=== PATIENT | female | born 1985 | race Two or more races ===

== ENCOUNTER → 2016-07-31 | Outpatient (REF) | payer OTHER ==
[~2016-07-31] MED LIST: ACET50TA PO; ANUS2.5C2 TOP; COLA100C PO; CYCL10TA PO; DIBU1OI TOP; DOCU10CA PO; FIORICET PO; IBUP-1114 PO; IBUP80TA PO; NUPE1OIN2 TOP; PRENATAL VITAMIN PO; PRENTAB9 PO
== END ==
LOC: M SFHCLERA 18:48
PROVIDERS: ATTEND Nurse Practitioner Family
DX: J06.9 Acute upper respiratory infection, unspecified (principal)

== ENCOUNTER → 2017-08-26 | Outpatient (REF) | payer OTHER | LOC: M LAB REF 17:25 | DX: E04.1 Nontoxic single thyroid nodule (principal) ==

== ENCOUNTER → 2018-02-15 | Outpatient (CLI) | payer OTHER | LOC: M RAD 11:38 | DX: N64.4 Mastodynia (principal) | CPT/HCPCS: 77066 ==

== ENCOUNTER → 2018-04-21 | Outpatient (CLI) | payer OTHER, MEDICAID ==
[~2018-04-21] MED LIST changes: -ACET50TA PO; -ANUS2.5C2 TOP; -COLA100C PO; -CYCL10TA PO; -DIBU1OI TOP; -DOCU10CA PO; -FIORICET PO; -IBUP-1114 PO; -IBUP80TA PO; +LIDOCAINE 1% MDV 20ML VIAL As Ordered; -NUPE1OIN2 TOP; -PRENATAL VITAMIN PO; -PRENTAB9 PO
[2018-04-21 14:26] LABS: CSF RBC 5 10^3/uL (<2)
[2018-04-21 14:28] LABS: APPEARANCE, CSF HAZY (CLEAR); COLOR, CSF PINK (COLORLESS); CSF DIFF IF INDICATED? YES (NO); CSF TUBE# CELL CNT TUBE 1; CSF WBC 10 /uL (0-10)
[2018-04-21 14:46] LABS: CSF TUBE# GLU TUBE 1; CSF TUBE# TP TUBE 1; GLUCOSE CSF 50 MG/DL (40-75); TOTAL PROTEIN,CSF 79 MG/DL (15-45)
[2018-04-26 00:30] LABS: IMMUNOGLOBULIN G CSF 4.3 mg/dL (0.0-8.6)
== END ==
LOC: M RADPRO 11:09
DX: G93.2 Benign intracranial hypertension (principal); M47.9 Spondylosis, unspecified
CPT/HCPCS: 62272

== ENCOUNTER → 2019-07-26 | Outpatient (REF) | payer OTHER, MEDICAID ==
[~2019-07-26] MED LIST changes: +ANUS2.5C2 TOP; +COLA100C5 PO; +CYCL10TA PO; +DIBU10OI TOP; +DOCU10CA PO; +FIORICET PO; +IBUP-1114 PO; +IBUP80TA PO; -LIDOCAINE 1% MDV 20ML VIAL As Ordered; +MAPA500T2 PO; +NUPE1OIN2 TOP; +PRENATAL VITAMIN PO; +PRENTAB9 PO
[2019-07-26 17:47] LABS: C REACTIVE PROTEIN QUANTITATIV < 0.30 MG/DL (0.00-0.30); RHEUMATOID FACTOR QUANT < 10.0 IU/ML (<15.0)
== END ==
LOC: M SFHCRHEU 13:35
PROVIDERS: ATTEND Internal Medicine
DX: M35.7 Hypermobility syndrome (principal)
CPT/HCPCS: 36415; 85652; 86140; 86200; 86431; G0463

== ENCOUNTER 2020-01-16 06:45 | Day surgery (SDC) | payer OTHER, MEDICAID ==
[~2020-01-16] VITALS: Ht 165.1 cm; Wt 71.2 kg
[~2020-01-16 06:45] MED LIST changes: +B-1100TA2 PO; +B-12100T2 PO; +B-2100TA PO; +CLAR10CA3 PO; +CYCL-707 PO; -CYCL10TA PO; +D31000TA2 PO; +IRON65TA2 PO; +LOPE1TAB PO; +MAGN400T2 PO; +MAXA10TA14 PO; +MELO15TA28 PO; +METH1TAB40 PO; +NEUR300C PO; +NORT10CA2 PO; +SIME180C PO; +TRAM50TA2 PO; +VITA500C19 PO
[2020-01-16] MEDS ORDERED: ROPIvacaine 0.5% 30ML INJECTION (J2795 PER 1MG) ONE (06:46)
[2020-01-16] MEDS ORDERED: LIDOCAINE 1% MDV 20ML VIAL ONE (06:46)
[2020-01-16] MEDS ORDERED: ceFAZolin 2 GM/D5W 50 ML IV BAG (J0690 PER 500MG) As Ordered ONE (08:08)
[2020-01-16] MEDS ORDERED: METOCLOPRAMIDE INJ 10MG/2ML VIAL (J2765 PER 1) As Ordered ONE ×2 (08:17→13:47)
[2020-01-16] MEDS ORDERED: KETOROLAC 60MG 2ML VIAL As Ordered ONE (08:17)
[2020-01-16] MEDS ORDERED: ROCURONIUM BROMIDE 50 MG/5 ML VIAL As Ordered ONE (08:17)
[2020-01-16] MEDS ORDERED: ONDANSETRON 4MG/2ML VIAL As Ordered ONE ×2 (08:17→12:22)
[2020-01-16] MEDS ORDERED: propofoL 200 MG/20 ML VIAL As Ordered ONE (08:17)
[2020-01-16] MEDS ORDERED: LIDOCAINE 2% 100MG/5ML SDV (FOR ANES.) As Ordered ONE (08:17)
[2020-01-16] MEDS ORDERED: fentaNYL 100 MCG/2 ML INJECTION (J3010) As Ordered ONE ×2 (08:18→08:30)
[2020-01-16] MEDS ORDERED: MIDAZOLAM INJ 2MG/2ML VIAL (J2250 PER 1MG) As Ordered ONE ×2 (08:18→08:30)
[2020-01-16] MEDS ORDERED: BUPIVACAINE HCL 0.5% 30 ML VIAL As Ordered ONE (08:51)
[2020-01-16] MEDS ORDERED: EPINEPHrine 1MG/ML INJ 30ML MD-VIAL As Ordered ONE (08:51)
[2020-01-16] MEDS ORDERED: MIDAZOLAM INJ 2MG/2ML VIAL (J2250 PER 1MG) IV ONE ×2 (09:30→14:15)
[2020-01-16] MEDS ORDERED: fentaNYL 100 MCG/2 ML INJECTION (J3010) IV ONE ×2 (09:30→14:15)
[2020-01-16] MEDS ORDERED: LIDOCAINE 1% SDV 30ML VIAL As Ordered ONE (09:59)
[2020-01-16] MEDS ORDERED: dexameTHASONE 4 MG/ML 1ML VIAL (J1100 PER 1MG) As Ordered ONE (10:43)
[2020-01-16] MEDS ORDERED: oxyCODONE 5MG TAB As Ordered ONE (12:22)
[2020-01-16] MEDS ORDERED: HYDROMORPHONE HCL 0.5 MG/ 0.5 ML SYRINGE (J1170 PER 1) As Ordered ONE ×2 (12:23→12:41)
[2020-01-16] MEDS ORDERED: LR 1,000 ML IV SCH ×2 (12:30→12:45)
[2020-01-16] MEDS: ONDANSETRON 4MG/2ML VIAL IV PRN ×2 (12:30→12:49)
[2020-01-16] MEDS: oxyCODONE 5MG TAB PO PRN ×2 (12:35→13:11)
[2020-01-16] MEDS ORDERED: fentaNYL 100 MCG/2 ML INJECTION (J3010) IV PRN (12:45)
[2020-01-16] MEDS: HYDROMORPHONE HCL 0.5 MG/ 0.5 ML SYRINGE (J1170 PER 1) IV PRN ×3 (12:52→13:12)
[2020-01-16] MEDS ORDERED: METOCLOPRAMIDE INJ 10MG/2ML VIAL (J2765 PER 1) IV PRN (14:15)
[2020-01-16 15:30] VITALS: BP 108/62
--- NOTE | 2020-02-29 13:07 | RO ---
DATE OF OPERATION: 01/16/2020 PREOPERATIVE DIAGNOSES: * Right shoulder instability. * Right shoulder biceps tendonitis. * Right shoulder acromioclavicular joint arthritis. POSTOPERATIVE DIAGNOSES: * Right shoulder instability. * Right shoulder biceps tendonitis. * Right shoulder acromioclavicular joint arthritis. * Right shoulder partial rotator cuff tear. PROCEDURES: * Right shoulder arthroscopic anterior and posterior labral repair. * Right shoulder arthroscopic rotator cuff tear debridement (bursal side). * Right shoulder open subpectoral biceps tenodesis. * Right shoulder arthroscopic distal clavicle excision. SURGEON: Uche Kauffman M.D. CREDIT RISK REVIEW OFFICER: RACHEAL Dominguez. ANESTHESIA: General with preoperative nerve block. IV FLUIDS: Lactated ringers. ESTIMATED BLOOD LOSS: 10 mL. IMPLANTS: Arthrex Proximal Biceps Button x1 and Arthrex 3-mm Suture Sunil x1 and Arthrex 2.9-mm PushLock anchor x3 with labral tape. CLOSURE: Nylon and Monocryl. DESCRIPTION OF PROCEDURE: Patient was identified in the preoperative holding area. The right shoulder was marked by me. She had a clearance from Dr. Barrett. She had an interscalene nerve block from anesthesia. She was brought to the operating room and placed supine on a well-padded OR table with a nicole bag. General anesthesia was induced. Examination under anesthesia revealed 170 of forward flexion, 90 external rotation, grade 2+ low anterior load and shift, grade 2 posterior load and shift. She was then placed in the left-side down lateral decubitus position with an axillary roll. All marysol prominences were well-padded with bilateral Venodyne boots for DVT prophylaxis. The right arm was placed into the Arthrex StaR Sleeve lateral decubitus traction hallman with 10 pounds of traction. The right shoulder was then prepped and draped in a normal sterile fashion with ChloraPrep. She received appropriate IV antibiotics within one hour of incision. A time-out was again performed per hospital protocol. Misael Malcolm was present for the entire procedure and participated in all essential portions of the procedure. This included patient positioning and draping, holding the arthroscope, holding retractors, assisting with whip stitching during the biceps tenodesis, assisting with the wound closure for that, providing traction to the arm during suture passage and drilling and anchor placement. He also assisted with loading sutures for the anchors. He also performed the wound closure and applied the dressing and sling. A posterior viewing portal was localized with a spinal needle. An incision was made with an 11-blade. A 30 arthroscope was introduced into the joint and diagnostic arthroscopy was carried out. There was no tearing of the subscapularis, no tearing of the articular side of the rotator cuff. with a few areas of grade 1 chondromalacia in the glenoid, and the humeral head was in good condition. There was entirely deficit anterior and posterior-inferior labrum with absolutely no bumper and a positive drive-through sign. An anterior working portal was localized with a spinal needle just off of subscapularis. Purple Arthrex cannula placed. Superior labrum was stable. The long head of the biceps was brought into the joint and there was some hyperemia and evidence of a possible partial longitudinal split tear. Given the patient's preoperative symptoms and her strong desire to have a biceps tenodesis to avoid a second surgery, I used the biter to release the long head of the biceps off of the superior labrum. The tendon was noted to withdraw from the joint. The stump was debrided back to the superior labrum. I then proceeded with an open biceps tenodesis. The incision was made with a 15- blade just lateral to the axilla. Metzenbaum scissors were used to dissect down to the biceps fascia, which was carefully opened with scissors. The long head of the biceps was easily dissected out with the right angle clamp. The Arthrex proximal biceps tenodesis kit was opened. The FiberLoop was used to create a running locking whip stitch through the long head of the biceps. Excess tendon trimmed and discarded. Sutures were loaded through the button per routine. The spade-tipped drill bit was used to create a unicortical drill hole in the bicipital groove and bony debris removed with irrigation. The button was passed through the drill hole on the laboratory animal caretaker. Sutures were toggled which flipped the button. A curve free needle was used to pass one limb of suture back through the tendon, knot tied by hand to lock the construct in place. This made sure to restore the resting tension. The incision extensively irrigated with arthroscopy fluid and then the fascia was closed with 2-0 Vicryl, followed by a 2-0 Vicryl subcuticular closure and a running Monocryl. At the end of the case, Steri- Strips were placed. The arthroscope was placed back into the joint. When viewing from the anterior portal, the humeral head was noted to be subluxed in it inferiorly. Based on preoperative planning and intraoperative examination and inspected, this required both the anterior and posterior-inferior labral repair. So, an accessory superolateral portal was developed just anterior to the biceps. The hooked radiofrequency cautery was used to develop the plane between glenoid labrum and articular cartilage from the 3:30 to 5:30 position. The labral elevator was then used to subperiosteally elevate the labrum and capsule off of the anterior glenoid neck. Shaver was then used to remove soft tissue and then on the bur setting to create a bleeding surface. I then drilled and placed a 3-mm Suture Sunil anchor at the 5:00 o'clock position. TigerWire sutures were passed with the SutureLasso in a horizontal mattress fashion through the anterior band of the inferior glenohumeral ligament. My assistant housekeeping manager applied a posterior lever push to the proximal humerus and then I tied knots using alternating half-hitch technique. This nicely restored the anterior-inferior bumper. Drive-through sign was eliminated. Next, a SutureLasso was used to shuttle labral tape through the capsule and labrum. This was loaded through a PushLock anchor and a socket drilled at the 4:00 o'clock position. The anchor was docked and sutures gently tensioned and then inserted by hand and then malleted to the appropriate depth per routine. Suture was cut with the bias binding cutter. This nicely restored the anterior-inferior bumper. The scope was placed in the superolateral portal. Humeral head was just posterior to the midline. There was deficit posterior-inferior labral bumper, so an accessory posterolateral portal was localized with the Arthrex Percutaneous Labral Repair kit. A third and final cannula was placed. The hooked cautery was used to elevate capsule and labrum off of the posterior-inferior glenoid. Then, labral elevators were used through the anterior portal to subperiosteally elevate capsule and labrum. SutureLasso was used to shuttle labral tape through the posterior-inferior capsule and labrum. This was loaded through a PushLock anchor per routine. A socket was drilled at the 7:00 o'clock position. Then the same steps as before repeated. The anchor was docked, malleted with excellent fixation. The same steps were repeated for a fourth and final PushLock anchor that was drilled and placed at the 8:00 o'clock position. This nicely completed the anterior and posterior labral repair with an [id number] capsular shift. There was no significant glenohumeral arthritis. The shoulder was irrigated and drained. The arthroscope was now placed in the subacromial space, where there was dense bursitis, but only a subacromial spur. Through a lateral working portal, I performed an extensive bursectomy. Soft tissue was then cleared out at the AC joint. Through the anterior portal, a bur was used to remove approximately 6-mm of the distal clavicle. The scope was intermittently placed into the anterior portal to get a direct view and to ensure all posterior-superior bone had been removed. At the completion of the distal clavicle excision, the shoulder was irrigated and drained. Portals were closed with nylon suture. Bulky sterile dressing was applied. Steri-Strips were placed over the biceps tenodesis incision. The patient, at this time, is being placed into her sling, and then will be extubated and transferred to the PACU. She will have to start physical therapy in 7 to 10 days. ALPESH
== END 2020-01-16 16:08 | disposition home or self-care (01) ==
LOC: M SDC 06:45
PROVIDERS: ATTEND Orthopaedic Surgery
DX: S43.431A Superior glenoid labrum lesion of right shoulder, initial encounter (principal); F43.10 Post-traumatic stress disorder, unspecified; Z88.8 Allergy status to other drugs, medicaments and biological substances; F32.9 Major depressive disorder, single episode, unspecified; F41.9 Anxiety disorder, unspecified; D64.9 Anemia, unspecified; Z79.899 Other long term (current) drug therapy; X58.XXXA Exposure to other specified factors, initial encounter; Y92.89 Other specified places as the place of occurrence of the external cause; Y93.9 Activity, unspecified; Y99.9 Unspecified external cause status
CPT/HCPCS: 23430; 29806; 29824; 64415; 81025; C1713; J1100; J1170; J2250; J2405; J2765; J2795; J3010

== ENCOUNTER → 2020-04-03 | Outpatient (CLI) | payer OTHER, MEDICAID ==
--- NOTE | 2020-04-04 03:04 | REP ---
INDICATION: BENIGN INTRACRANIAL HYPERTENSION. COMPARISON: None. TECHNIQUE: AP and lateral views of the mid abdomen and pelvis FINDINGS: There is a catheter with radiodense hub originating in the region of the right paraspinous musculature/soft tissue extending into the pelvis. The catheter appears continuous and without fracture or kink. Lateral view suggests a more proximal portion of catheter possibly within the epidural space extending from the superior aspect of the examination exiting the region of the spinal canal at the L3-4 level and terminating at the above-mentioned hub in the posterior soft tissue. IMPRESSION: 1. Poor visualization of a presumed epidural catheter extending to a radiodense hub in the posterior right paraspinous subcutaneous tissue followed by well identified catheter extending from the radiodense held into the pelvis. <Electronically signed by Kyle Perez > 04/04/20 1428
== END ==
LOC: M RAD 15:36
PROVIDERS: ATTEND Neurological Surgery
DX: G93.2 Benign intracranial hypertension (principal); Z48.811 Encounter for surgical aftercare following surgery on the nervous system; Z98.2 Presence of cerebrospinal fluid drainage device

== ENCOUNTER 2020-05-02 13:04 | Day surgery (SDC) | payer OTHER, MEDICAID ==
[~2020-05-02] VITALS: Ht 165.1 cm; Wt 73.4 kg
[~2020-05-02 13:04] MED LIST changes: +BACL1TAB8 PO; +DILA2TAB6 PO; +LIDOCAINE 1% MDV 20ML VIAL As Ordered ONE; +MIDAZOLAM INJ 2MG/2ML VIAL (J2250 PER 1MG) As Ordered ONE; +MIDAZOLAM INJ 2MG/2ML VIAL (J2250 PER 1MG) IV PRN; +PERC5TAB12 PO; +ROPIvacaine 0.5% 30ML INJECTION (J2795 PER 1MG) As Ordered ONE; +dexameTHASONE 10MG/1ML VIAL PRES.FREE (J1100 PER 1MG) As Ordered ONE; +fentaNYL 100 MCG/2 ML INJECTION (J3010) As Ordered ONE; +fentaNYL 100 MCG/2 ML INJECTION (J3010) IV PRN
[2020-05-02 13:50] LABS: HEMATOCRIT 40.8 % (36.0-47.0); HEMOGLOBIN 13.5 g/dl (12.0-15.5); MEAN CORPUSCULAR HEMOGLOBIN 28.4 pg (27.0-33.0); MEAN CORPUSCULAR HGB CONC 33.1 g/dl (32.0-36.5); MEAN CORPUSCULAR VOLUME 85.7 fl (80.0-96.0); PLATELET COUNT, AUTOMATED 202 10^3/uL (150-450); RED BLOOD COUNT 4.76 10^6/uL (4.00-5.40); WHITE BLOOD COUNT 6.7 10^3/uL (4.0-10.0)
[2020-05-02] MEDS ORDERED: LIDOCAINE 2% 100MG/5ML SDV (FOR ANES.) As Ordered ONE (13:53)
[2020-05-02] MEDS ORDERED: fentaNYL 100 MCG/2 ML INJECTION (J3010) As Ordered ONE (13:53)
[2020-05-02] MEDS ORDERED: MIDAZOLAM INJ 2MG/2ML VIAL (J2250 PER 1MG) As Ordered ONE (13:53)
[2020-05-02] MEDS ORDERED: ROCURONIUM BROMIDE 50 MG/5 ML VIAL As Ordered ONE (13:53)
[2020-05-02] MEDS ORDERED: propofoL 200 MG/20 ML VIAL As Ordered ONE (13:53)
[2020-05-02] MEDS ORDERED: KETOROLAC 60MG 2ML VIAL As Ordered ONE (13:54)
[2020-05-02] MEDS ORDERED: dexameTHASONE 4 MG/ML 1ML VIAL (J1100 PER 1MG) As Ordered ONE (13:54)
[2020-05-02] MEDS ORDERED: ONDANSETRON 4MG/2ML VIAL As Ordered ONE ×2 (13:54→19:09)
[2020-05-02] MEDS ORDERED: ceFAZolin SOD 2 GM in IV 1 EA IV ONE (15:00)
[2020-05-02] MEDS ORDERED: LIDOCAINE 1% MDV 20ML VIAL XX ONE (15:00)
[2020-05-02] MEDS ORDERED: dexameTHASONE 10MG/1ML VIAL PRES.FREE (J1100 PER 1MG) XX ONE (15:00)
[2020-05-02] MEDS ORDERED: ROPIvacaine 0.5% 30ML INJECTION (J2795 PER 1MG) XX ONE (15:00)
[2020-05-02] MEDS ORDERED: EPINEPHrine 1MG/ML INJ 30ML MD-VIAL As Ordered ONE (15:02)
[2020-05-02] MEDS ORDERED: BUPIVACAINE HCL 0.25% 10ML VIAL As Ordered ONE (17:13)
[2020-05-02] MEDS ORDERED: BUPIVACAINE LIPOSOME/PF 1.3% 20ML VIAL (13.3MG/ML)(EXPAREL)(C9290 PER1MG) As Ordered ONE (17:13)
[2020-05-02] MEDS ORDERED: HYDROmorphone HCL 2 MG/ML 1ML VIAL (J1170) As Ordered ONE (17:17)
[2020-05-02] MEDS ORDERED: PHENYLephrine HCL 500 MCG/5 ML (100MCG/ML) SYRINGE (J2370) As Ordered ONE (17:19)
[2020-05-02] MEDS ORDERED: SUGAMMADEX SODIUM 500 MG/5 ML VIAL (BRIDION) As Ordered ONE (17:42)
[2020-05-02] MEDS ORDERED: ACETAMINOPHEN 1000MG 100ML IV BTL (OFIRMEV) (J0131 PER 10MG) As Ordered ONE (17:44)
[2020-05-02] MEDS ORDERED: ONDANSETRON 4MG/2ML VIAL IV PRN (19:30)
[2020-05-02] MEDS ORDERED: HYDROMORPHONE HCL 0.5 MG/ 0.5 ML SYRINGE (J1170 PER 1) IV PRN (19:30)
[2020-05-02] MEDS ORDERED: fentaNYL 100 MCG/2 ML INJECTION (J3010) IV PRN (19:30)
[2020-05-02] MEDS ORDERED: oxyCODONE 5MG TAB PO PRN (19:30)
[2020-05-02] MEDS ORDERED: LR 1,000 ML IV SCH ×2 (19:30)
[2020-05-02 20:55] VITALS: BP 135/91
--- NOTE | 2020-05-03 10:02 | RO ---
OPERATIVE NOTE DATE OF OPERATION: 05/02/2020 PREOPERATIVE DIAGNOSES: 1. Right shoulder arthrofibrosis. 2. Right shoulder possible labral re-tear. POSTOPERATIVE DIAGNOSES: 1. Right shoulder arthrofibrosis. 2. Right shoulder glenohumeral chondromalacia. 3. Right shoulder anterior labral tear. PROCEDURES: 1. Right shoulder manipulation under anesthesia. 2. Right shoulder arthroscopic synovectomy and chondroplasty. 3. Right shoulder arthroscopic hardware removal. SURGEON: Uche Kauffman M.D. COOKEE: None. ANESTHESIA: General. IV FLUIDS: Lactated ringers. ESTIMATED BLOOD LOSS: 10 mL. IMPLANTS: None. CLOSURE: Nylon. DESCRIPTION OF PROCEDURE: The patient was identified in the preoperative holding area where the right shoulder was marked. This is a female who had had a combined anterior and posterior labral repair in December and then, was probably placed in the prone position with the shoulders and elbows at 90/90 for an emergency surgery on a shunt and retore her labrum. She has had significant pain since then. She was cleared by her neurosurgeon for revision shoulder surgery. Risks and benefits of surgery discussed. Written informed consent obtained. She had an interscalene nerve block by anesthesia and then was brought to the operating room placed supine on a well-padded OR table with a nicole bag. General anesthesia induced. She received appropriate antibiotics within one hour of incision. Bilateral SCDs for DVT prophylaxis. Examination under anesthesia revealed 90 degrees of forward flexion, 10 degrees of external rotation with arm at her side, 10 degrees of external rotation with the shoulder at 90. No increased anterior or posterior translation on load and shift. I then performed a manipulation under anesthesia. I applied steady forward flexion, grasping the humerus as close to the shoulder as possible to decrease the lever arm and minimize the risk for fracture. Multiple pops were felt and heard. This was all slow and steady. From the forward flexed position, she was then dropped down into 90/90 position, the humerus as adducted against her side, and multiple pops were felt again. The patient's arm was then abducted and then those same steps were repeated. She now had 170 degrees of forward flexion, 70 degrees of external rotation with her arm at her side, and 80 degrees of external rotation with her shoulder at 90. She had a grade 1 plus anterior load and shift. She was then placed in the left side down lateral decubitus position with an axillary roll and all bony prominences were well padded. She was secured to the OR table with a nicole bag. The right arm was placed into the Arthrex STaR Sleeve Lateral Decubitus Traction hallman with 10 pounds of traction. Time-out was again performed. Again, the right shoulder had been prepped and draped in the normal sterile fashion with ChloraPrep. Time-out performed again. The right shoulder was insufflated with lactated ringers with the spinal needle. Standard posterior viewing portal made with the 11-blade, a 30-degree arthroscope was then introduced into the joint, and diagnostic arthroscopy carried out. There were a few thin flaps of frayed articular cartilage on both the humeral head and glenoid. No high grade defects though. The posterior inferior labral repair appeared intact. The entire anterior capsule was torn. Some loose suture from the SutureTak anchor was visible. No loose anchors seen. There was free edge tearing of the superior labrum. No obvious rotator cuff tearing. An anterior working portal was established through the rotator interval. A purple Arthrex cannula was placed. A shaver was then used to perform a synovectomy and superior labral debridement. INCOMPLETE /verified/ml
== END 2020-05-02 20:55 | disposition home or self-care (01) ==
LOC: M SDC 13:04
PROVIDERS: ATTEND Orthopaedic Surgery
DX: S43.431A Superior glenoid labrum lesion of right shoulder, initial encounter (principal); X58.XXXA Exposure to other specified factors, initial encounter; M94.211 Chondromalacia, right shoulder; M24.611 Ankylosis, right shoulder; Y92.89 Other specified places as the place of occurrence of the external cause; Y93.9 Activity, unspecified; Y99.9 Unspecified external cause status; K58.8 Other irritable bowel syndrome; G43.909 Migraine, unspecified, not intractable, without status migrainosus; D64.9 Anemia, unspecified; F41.9 Anxiety disorder, unspecified; F32.9 Major depressive disorder, single episode, unspecified; Z88.8 Allergy status to other drugs, medicaments and biological substances; Z79.899 Other long term (current) drug therapy
CPT/HCPCS: 29820; 29825; 36415; 64415; 81025; 85027; C9290; J0131; J0690; J1100; J1170; J1885; J2250; J2370; J2405; J3010

== ENCOUNTER 2022-02-18 13:30 | Emergency (ER) | payer OTHER ==
[~2022-02-18 13:30] MED LIST changes: -D31000TA2 PO; -DIBU10OI TOP; +DIBU28OI2 TOP; -LIDOCAINE 1% MDV 20ML VIAL As Ordered ONE; -MAXA10TA14 PO; +METH-1164 PO; -METH1TAB40 PO; -MIDAZOLAM INJ 2MG/2ML VIAL (J2250 PER 1MG) As Ordered ONE; -MIDAZOLAM INJ 2MG/2ML VIAL (J2250 PER 1MG) IV PRN; +RIZA10TA64 PO; -ROPIvacaine 0.5% 30ML INJECTION (J2795 PER 1MG) As Ordered ONE; -SIME180C PO; +SIME180C25 PO; +VITA100093 PO; -dexameTHASONE 10MG/1ML VIAL PRES.FREE (J1100 PER 1MG) As Ordered ONE; -fentaNYL 100 MCG/2 ML INJECTION (J3010) As Ordered ONE; -fentaNYL 100 MCG/2 ML INJECTION (J3010) IV PRN
[2022-02-18] MEDS ORDERED: dexameTHASONE 20MG/5ML VIAL (J1100 PER 1MG) IV ONE (18:05)
[2022-02-18] MEDS ORDERED: MAG SULF 1GM/100ML (MAG RUN) 1 GM in IV 1 EA IV ONE (18:05)
[2022-02-18] MEDS ORDERED: VALPROATE SOD INJ 1,000 MG in D5W 50 ML IV ONE (18:05)
[2022-02-18] MEDS ORDERED: HALOPERIDOL 5MG/ML VIAL (J1630 PER 1) IV ONE (18:05)
[2022-02-18 20:40] VITALS: BP 132/78
== END 2022-02-18 20:42 | disposition home or self-care (01) ==
LOC: M ED 13:30
DX: R51.9 Headache, unspecified (principal); I10 Essential (primary) hypertension; Z98.2 Presence of cerebrospinal fluid drainage device; F41.9 Anxiety disorder, unspecified; R29.818 Other symptoms and signs involving the nervous system; K58.9 Irritable bowel syndrome, unspecified; M79.7 Fibromyalgia; F43.10 Post-traumatic stress disorder, unspecified; Z79.899 Other long term (current) drug therapy; Z91.048 Other nonmedicinal substance allergy status; Z88.8 Allergy status to other drugs, medicaments and biological substances
CPT/HCPCS: 70450; 96374; 96375; 99284; J1100; J1630; J3475

== ENCOUNTER 2023-03-29 09:33 | Day surgery (SDC) | payer OTHER ==
[~2023-03-29] VITALS: Ht 165.1 cm; Wt 77.2 kg
[~2023-03-29 09:33] MED LIST changes: +ACET650T61 PO; +BACL10TA2 PO; +CHOL50003 PO; +DIPH-435 PO; +DRON2.5C11 PO; +DRON5CAP13 PO; +FLON1SPR; +FOLI1TAB11 PO; +LACT30006 PO; +LINZ290C PO; +MAGN400T33 PO; +MONT10TA97 PO; +NS 1,000 ML IV ONE; +ONDA4TAB6 PO; +OXYB10TA23 PO; +POTA-151 PO; +PROP10TA56 PO; +REFR0.5D8 OU; +SIME125T PO; +TAMS1CAP17 PO; +VITA100T14 PO; +VITA500T9 PO; +propofoL 200 MG/20 ML VIAL As Ordered ONE
[2023-03-29] MEDS ORDERED: fentaNYL 100 MCG/2 ML INJECTION As Ordered ONE (10:56)
[2023-03-29] MEDS ORDERED: LIDOCAINE 2% 100MG/5ML SDV (FOR ANES.) As Ordered ONE (10:56)
[2023-03-29] MEDS ORDERED: propofoL 200 MG/20 ML VIAL As Ordered ONE (11:11)
[2023-03-29] MEDS ORDERED: ONDANSETRON 4MG 2ML VIAL As Ordered ONE (11:11)
[2023-03-29] MEDS ORDERED: PHENYLephrine 500MCG 5ML (100MCG/ML) SYRINGE As Ordered ONE (11:16)
[2023-03-29 12:10] VITALS: BP 103/66; O2SAT 98
== END 2023-03-29 12:12 | disposition home or self-care (01) ==
LOC: M OPP 09:33
PROVIDERS: ATTEND Internal Medicine Gastroenterology
DX: K64.0 First degree hemorrhoids (principal); K59.04 Chronic idiopathic constipation; K30 Functional dyspepsia; R68.81 Early satiety; G47.33 Obstructive sleep apnea (adult) (pediatric); Z99.89 Dependence on other enabling machines and devices; Z79.1 Long term (current) use of non-steroidal anti-inflammatories (NSAID); Z79.51 Long term (current) use of inhaled steroids; Z79.891 Long term (current) use of opiate analgesic; Z88.1 Allergy status to other antibiotic agents; Z88.6 Allergy status to analgesic agent; Z88.8 Allergy status to other drugs, medicaments and biological substances; Z91.048 Other nonmedicinal substance allergy status
CPT/HCPCS: 43239; 45378; 88305; J2371; J2405; J3010

== ENCOUNTER 2023-04-13 19:08 | Emergency (ER) | payer OTHER, MEDICAID ==
[~2023-04-13] VITALS: Ht 165.1 cm; Wt 77.9 kg
[~2023-04-13 19:08] MED LIST changes: -NS 1,000 ML IV ONE; -propofoL 200 MG/20 ML VIAL As Ordered ONE
[2023-04-13] MEDS ORDERED: NS 1,000 ML IV ONE (22:45)
[2023-04-13] MEDS ORDERED: RIZATRIPTAN MLT 10 MG TAB PO ONE (22:45)
[2023-04-13 23:31] LABS: BASO % 0.6 % (0.0-1.0); EOS # 0.1 10^3/uL (0.0-0.5); EOS % 1.3 % (0.0-3.0); HEMOGLOBIN 14.6 g/dl (12.0-15.5); LYMPH # 2.5 10^3/uL (1.5-5.0); LYMPH % 35.2 % (24.0-44.0); MEAN CORPUSCULAR HEMOGLOBIN 29.4 pg (27.0-33.0); MEAN CORPUSCULAR HGB CONC 34.8 g/dl (32.0-36.5); MEAN CORPUSCULAR VOLUME 84.5 fl (80.0-96.0); MONO # 0.4 10^3/uL (0.0-0.8); MONO % 6.2 % (2.0-8.0); NEUTROPHILS # 3.9 10^3/uL (1.5-8.5); NEUTROPHILS % 56.6 % (36.0-66.0); PLATELET COUNT, AUTOMATED 214 10^3/uL (150-450); RED BLOOD COUNT 4.97 10^6/uL (4.00-5.40)
[2023-04-13 23:58] LABS: C REACTIVE PROTEIN QUANTITATIV < 0.40 MG/DL (<1.0)
[2023-04-14 00:01] LABS: BLOOD UREA NITROGEN 13 MG/DL (9-23); CALCIUM LEVEL 9.4 MG/DL (8.5-10.1); CARBON DIOXIDE LEVEL 29 MMOL/L (20-31); CHLORIDE LEVEL 106 MMOL/L (98-107); CREATININE FOR GFR 0.69 MG/DL (0.55-1.30); GLOMERULAR FILTRATION RATE > 60.0 (>60); GLUCOSE, FASTING 80 MG/DL (60-100); POTASSIUM SERUM 3.5 MMOL/L (3.5-5.1); SODIUM LEVEL 142 MMOL/L (136-145)
[2023-04-14 00:07] LABS: PROCALCITONIN <0.04 ng/ml
[2023-04-14 00:32] LABS: ERYTHROCYTE SEDIMENTATION RATE 16 mm/hr (0-20)
[2023-04-14] MEDS ORDERED: methylPREDNISolone 125MG 2ML VIAL IV ONE (02:20)
[2023-04-14] MEDS ORDERED: RIZATRIPTAN MLT 10 MG TAB PO ONE (02:20)
[2023-04-14] MEDS ORDERED: RIZA10TA66 PO (02:21)
[2023-04-14] MEDS ORDERED: PRED20TA PO (02:21)
[2023-04-14 02:50] VITALS: BP 133/76; TEMP 97.8; O2SAT 99
== END 2023-04-14 02:53 | disposition home or self-care (01) ==
LOC: M ED 19:08
DX: R22.31 Localized swelling, mass and lump, right upper limb (principal); G43.909 Migraine, unspecified, not intractable, without status migrainosus; G90.A Postural orthostatic tachycardia syndrome [POTS]; Z79.899 Other long term (current) drug therapy; Z88.6 Allergy status to analgesic agent; Z88.8 Allergy status to other drugs, medicaments and biological substances; Z91.89 Other specified personal risk factors, not elsewhere classified
CPT/HCPCS: 73130; 80048; 84145; 85025; 85652; 86140; 87040; 96361; 96374; 99284; J2930

== ENCOUNTER → 2023-10-21 | Outpatient (CLI) | payer OTHER, MEDICAID ==
[~2023-10-21] MED LIST changes: +PRED20TA PO; +RIZA10TA66 PO
== END ==
LOC: M CARPUL 14:20
PROVIDERS: ATTEND Internal Medicine
DX: R01.1 Cardiac murmur, unspecified (principal)

== ENCOUNTER → 2024-07-19 | Outpatient (CLI) | payer OTHER, MEDICAID ==
[~2024-07-19] MED LIST changes: +ONDA-282 PO; -ONDA4TAB6 PO; -SIME180C25 PO; +SIME1CAP4 PO; -VITA500C19 PO; +VITA500C22 PO
== END ==
LOC: M WHC 07:40
PROVIDERS: ATTEND Internal Medicine
DX: R92.30 Dense breasts, unspecified (principal)

== ENCOUNTER → 2024-08-07 | Outpatient (CLI) | payer OTHER, MEDICAID | LOC: M PLAIMG 08:09 | PROVIDERS: ATTEND Physician Assistant Medical | DX: R42 Dizziness and giddiness (principal) ==

== ENCOUNTER → 2024-11-28 | Outpatient (CLI) | payer OTHER, MEDICAID ==
[~2024-11-28] MED LIST changes: +CELE1CAP99; -DRON2.5C11 PO; +DRON2.5C17 PO; -DRON5CAP13 PO; +DRON5CAP19 PO; +ELET40TA; +EMGA120I; +HYDR-3713; +NALO4SPR20; +OMAL300A
== END ==
LOC: M RAD 07:45
PROVIDERS: ATTEND Internal Medicine Gastroenterology
DX: R11.2 Nausea with vomiting, unspecified (principal); R68.81 Early satiety

== ENCOUNTER → 2024-12-08 | Outpatient (CLI) | payer OTHER, MEDICAID | LOC: M WHC 07:10 | PROVIDERS: ATTEND Family Medicine | DX: Z53.9 Procedure and treatment not carried out, unspecified reason (principal) ==

== ENCOUNTER → 2025-01-08 | Outpatient (CLI) | payer OTHER, MEDICAID ==
[~2025-01-08] MED LIST changes: +CROM100C; +LYRI75CA PO; +PREG50CA87 PO
== END ==
LOC: M RAD 10:29
PROVIDERS: ATTEND Family Medicine
DX: R10.9 Unspecified abdominal pain (principal); R90.89 Other abnormal findings on diagnostic imaging of central nervous system

== ENCOUNTER → 2025-03-26 | Outpatient (CLI) | payer OTHER, MEDICAID ==
[~2025-03-26] MED LIST changes: +VIBE75TA; -VITA100T14 PO; +VITA100T69 PO
== END ==
LOC: M EKG 11:37
PROVIDERS: ATTEND Internal Medicine
DX: R00.2 Palpitations (principal)